=== PATIENT | female | born 1990 | race Caucasian/White ===

== ENCOUNTER 2017-02-20 19:17 | Emergency (ER) | payer OTHER ==
[~2017-02-20] VITALS: Ht 167.6 cm; Wt 90.7 kg
[~2017-02-20 19:17] MED LIST: BACT800T OR; BCP PO; CIPRO PO; IBUP800T OR; PAIN325T OR; TYLENOL #3 OR
[2017-02-20 21:01] LABS: BASO % 0.3 % (0.0-1.0); EOS # 0.2 K/mm3 (0.0-0.50); EOS % 1.9 % (0.0-3.0); LARGE UNSTAINED CELL # 0.1 K/mm3 (0.0-0.4); LARGE UNSTAINED CELL % 1.8 % (0.0-4.0); LYMPH % 36.4 % (24.0-44.0); MEAN CORPUSCULAR HEMOGLOBIN 30.8 pg (27.0-33.0); MEAN CORPUSCULAR HGB CONC 35.8 g/dl (32.0-36.5); MEAN CORPUSCULAR VOLUME 86.2 fl (80.0-96.0); MONO # 0.5 K/mm3 (0.0-0.8); MONO % 6.3 % (0.0-5.0); NEUTROPHILS # 4.2 K/mm3 (1.8-7.7); NEUTROPHILS % 53.4 % (36.0-66.0); PLATELET COUNT, AUTOMATED 345 k/mm3 (150-450); RED CELL DISTRIBUTION WIDTH 12.8 % (11.5-14.5); WHITE BLOOD COUNT 7.9 K/mm3 (4.0-10.0)
[2017-02-20 21:42] VITALS: BP 145/85
[2017-02-20] MEDS ORDERED: NAPR500T PO (21:45)
--- NOTE | 2017-02-20 22:00 | REPUSA ---
Clinical history: Pain. Findings: Real-time transabdominal and transvaginal ultrasound images of the pelvis were obtained. A retroverted uterus is noted, measuring 7.4 x 4.1 x 5.1 cm. The uterus demonstrates normal echotexture and echogenicity. The endometrial s7.4 x 4.1 x 5.110 mm and is within normal limits. The right ovary measures 3.6 x 2.3 x 2.5 cm. The left ovary measures 3.0 x 1.5 x 2.3 cm. No adnexal masses are see n. Color Doppler flow is seen within both ovaries. There is no evidence of free fluid. The urinary bl adder measures 3.1 x 3.0 x 5.4 cm and is unremarkable. Impression: Unremarkable ultrasound examination of the pelvis.
== END 2017-02-20 21:50 | disposition home or self-care (01) ==
LOC: M ED 20:53
DX: R10.2 Pelvic and perineal pain (principal); E66.9 Obesity, unspecified; Z32.02 Encounter for pregnancy test, result negative

== ENCOUNTER 2017-07-03 15:05 | Emergency (ER) | payer OTHER ==
[~2017-07-03] VITALS: Ht 167.6 cm; Wt 91.8 kg
[~2017-07-03 15:05] MED LIST changes: +NAPR500T PO
[2017-07-03 15:09] VITALS: BP 148/94
[2017-07-03] MEDS ORDERED: TYLE325T5 PO (15:13)
[2017-07-03] MEDS ORDERED: BENZ200C53 PO (15:32)
[2017-07-03] MEDS ORDERED: FLON1SPR (15:32)
[2017-07-03] MEDS ORDERED: AUGM875T28 PO (15:32)
== END 2017-07-03 15:43 | disposition home or self-care (01) ==
LOC: M ED 15:05
DX: J01.90 Acute sinusitis, unspecified (principal); R05 Cough; H65.92 Unspecified nonsuppurative otitis media, left ear

== ENCOUNTER 2018-04-18 09:44 | Emergency (ER) | payer OTHER ==
[2018-04-18 10:34] LABS: BASO % 0.5 % (0.0-1.0); EOS # 0.1 10^3/uL (0.0-0.50); EOS % 1.3 % (0.0-3.0); HEMATOCRIT 41.9 % (36.0-47.0); HEMOGLOBIN 14.9 g/dl (12.0-15.5); IMMATURE GRANULOCYTE % 0.3 % (0-3.0); LYMPH # 2.6 10^3/uL (1.5-6.5); LYMPH % 41.8 % (24.0-44.0); MEAN CORPUSCULAR HEMOGLOBIN 30.8 pg (27.0-33.0); MEAN CORPUSCULAR HGB CONC 35.6 g/dl (32.0-36.5); MEAN CORPUSCULAR VOLUME 86.6 fl (80.0-96.0); MONO # 0.5 10^3/uL (0.0-0.8); MONO % 8.6 % (0.0-5.0); NEUTROPHILS # 2.9 10^3/uL (1.8-7.7); NEUTROPHILS % 47.5 % (36.0-66.0); PLATELET COUNT, AUTOMATED 328 10^3/uL (150-450); RED BLOOD COUNT 4.84 10^6/uL (4.00-5.40); WHITE BLOOD COUNT 6.1 10^3/uL (4.0-10.0)
[2018-04-18 10:51] LABS: D-DIMER QUANT < 270.0 ng/ml (<500)
[2018-04-18 11:03] LABS: ANION GAP 9 MEQ/L (8-16); BLOOD UREA NITROGEN 7 MG/DL (7-18); CALCIUM LEVEL 9.2 MG/DL (8.5-10.1); CARBON DIOXIDE LEVEL 29 MEQ/L (21-32); CHLORIDE LEVEL 104 MEQ/L (98-107); CREATININE FOR GFR 0.65 MG/DL (0.55-1.30); GLOMERULAR FILTRATION RATE > 60.0 (>60); GLUCOSE, FASTING 106 MG/DL (70-100); SODIUM LEVEL 142 MEQ/L (136-145)
== END 2018-04-18 11:19 | disposition home or self-care (01) ==
LOC: M ED 09:44
DX: J06.9 Acute upper respiratory infection, unspecified (principal); Z87.440 Personal history of urinary (tract) infections; Z79.899 Other long term (current) drug therapy
CPT/HCPCS: 71046

== ENCOUNTER → 2018-07-04 | Outpatient (CLI) | payer OTHER ==
[2018-07-04 15:38] LABS: FREE T4 1.01 NG/DL (0.76-1.46); PROLACTIN 9.4 NG/ML
[2018-07-07 01:40] LABS: TESTOSTERONE FREE (DIRECT) 1.1 pg/mL (0.0-4.2)
== END ==
LOC: M LAB 14:33
DX: N92.6 Irregular menstruation, unspecified (principal); N97.9 Female infertility, unspecified
CPT/HCPCS: 84146

== ENCOUNTER 2018-12-21 10:07 | Emergency (ER) | payer OTHER ==
[~2018-12-21] VITALS: Ht 167.6 cm; Wt 86.4 kg
[~2018-12-21 10:07] MED LIST changes: +ALEV220C2 PO; +AUGM875T28 PO; +BENZ200C70 PO; +FLON1SPR; +GUAI100L6 PO; +NAPR-837 PO; -NAPR500T PO; +PSEU30TA21 PO; +TYLE-45 PO; +TYLE325T5 PO; +ZITHTAB PO
[2018-12-21] MEDS ORDERED: CIPR500T39 (10:13)
[2018-12-21 11:08] LABS: INFLUENZA A AMPLIFICATION NEGATIVE (NEGATIVE); INFLUENZA B AMPLIFICATION NEGATIVE (NEGATIVE)
[2018-12-21 11:39] LABS: MONO SCRN NEGATIVE (NEGATIVE)
[2018-12-21] MEDS ORDERED: MAGICMW SSP (12:00)
[2018-12-21 12:05] VITALS: BP 118/78
--- NOTE | 2018-12-21 14:15 | ECGEPIP ---
Stationary ECG Study [facility] - ED Test Date: 2018-12-21 Pat Name: KELSEY HAM Department: Room: - Gender: F [employer]otype: CT : 1990 Requested By: DAISY Ivy PA-C Order Number: [id number] Reading MD: Janet Redmond Measurements Intervals [place] Rate: 109 P: 3 AK: 138 QRS: 24 QRSD: 87 T: 28 QT: 334 QTc: 450 Interpretive Statements SINUS TACHYCARDIA NONSPECIFIC T-WAVE ABNORMALITY ABNORMAL RHYTHM ECG NO PRIOR FOR COMPARISON Electronically Signed On 12-21-2018 14:14:52 EDT by Janet Redmond
== END 2018-12-21 12:21 | disposition home or self-care (01) ==
LOC: M ED 10:07
DX: J02.9 Acute pharyngitis, unspecified (principal); R00.0 Tachycardia, unspecified; R94.31 Abnormal electrocardiogram [ECG] [EKG]; Z86.69 Personal history of other diseases of the nervous system and sense organs; Z79.2 Long term (current) use of antibiotics

== ENCOUNTER 2019-03-18 10:52 | Emergency (ER) | payer BC, MEDICAID, OTHER ==
[~2019-03-18] VITALS: Ht 167.6 cm; Wt 82.4 kg
[2019-03-18 10:52] VITALS: BP 127/86
[~2019-03-18 10:52] MED LIST changes: +CIPR500T39; +MAGICMW SSP
[2019-03-18] MEDS ORDERED: ADACEL/BOOSTRIX VACCINE (DIPHTH/PERTUSS/ACELL/TETANUS)0.5ML SYR (90715) IM ONE (11:30)
[2019-03-18] MEDS ORDERED: DERMABOND TOPICAL SKIN ADHESIVE TOP ONE (11:45)
== END 2019-03-18 11:50 | disposition home or self-care (01) ==
LOC: M ED 10:52
DX: S61.012A Laceration without foreign body of left thumb without damage to nail, initial encounter (principal); W25.XXXA Contact with sharp glass, initial encounter; Y92.89 Other specified places as the place of occurrence of the external cause

== ENCOUNTER 2019-05-17 13:27 | Emergency (ER) | payer OTHER ==
[~2019-05-17] VITALS: Ht 167.6 cm; Wt 72.7 kg
[2019-05-17 13:28] VITALS: BP_DIAS 33
[2019-05-17 15:27] VITALS: BP_SYST 140
== END 2019-05-17 15:28 | disposition home or self-care (01) ==
LOC: M ED 13:27
DX: J06.9 Acute upper respiratory infection, unspecified (principal); I10 Essential (primary) hypertension

== ENCOUNTER → 2019-10-10 | Outpatient (CLI) | payer MEDICAID ==
[2019-10-10 16:41] LABS: HEMATOCRIT 38.1 % (36.0-47.0); HEMOGLOBIN 13.2 g/dl (12.0-15.5); MEAN CORPUSCULAR HEMOGLOBIN 30.5 pg (27.0-33.0); MEAN CORPUSCULAR HGB CONC 34.6 g/dl (32.0-36.5); PLATELET COUNT, AUTOMATED 301 10^3/uL (150-450); RED BLOOD COUNT 4.33 10^6/uL (4.00-5.40); WHITE BLOOD COUNT 9.3 10^3/uL (4.0-10.0)
[2019-10-10 19:05] LABS: CHLAMYDIA DNA AMPLIFICATION NEGATIVE (NEGATIVE); GC DNA AMPLIFICATION NEGATIVE (NEGATIVE)
[2019-10-13 10:36] LABS: HIV 1&2 SCREEN CENTAUR NEGATIVE (NEGATIVE)
[2019-10-13 14:17] LABS: HEPATITIS B SURFACE ANTIGEN NEGATIVE (NEGATIVE); HEPATITIS C VIRUS ABY INDEX < 0.0 INDEX (<0.8)
== END ==
LOC: M LAB 14:47
PROVIDERS: ATTEND Advanced Practice Midwife
DX: Z33.1 Pregnant state, incidental (principal)

== ENCOUNTER → 2019-11-10 | Outpatient (CLI) | payer OTHER, MEDICAID | LOC: M LAB 15:18 | PROVIDERS: ATTEND Obstetrics & Gynecology | DX: Z34.81 Encounter for supervision of other normal pregnancy, first trimester (principal) ==

== ENCOUNTER → 2020-01-14 | Outpatient (CLI) | payer MEDICAID ==
--- NOTE | 2020-01-14 16:45 | REP ---
OBSTETRIC SONOGRAPHY: HISTORY: Supervision of , second trimester study. FINDINGS: Scanning through the gravid uterus demonstrates a single living intrauterine gestation in a breech lie. motion is observed, and heart rate is recorded at 161 beats per minute. A posterior grade 0 placenta is seen without evidence of previa. Amniotic fluid is subjectively normal. Closed cervical length is 3.7 cm, viewed transabdominally. No extrauterine abnormalities observed. No anomaly is seen. The following anatomic structures are less than optimally seen due to position: Facial profile, four-chamber heart with left and right ventricular outflow tract views. The following anatomic structures are identified and felt to be unremarkable: cranium, choroid plexus, cavum, cerebellum and posterior fossa, diaphragm, left-sided stomach, abdominal wall cord insertion, three-vessel cord, kidneys and bladder, spine, upper and lower extremities. BIOMETRY CHART: BPD 4.9 cm = 20 weeks 6 days Head circumference 18.7 cm = 21 weeks 0 days Abdominal circumference 15.8 cm = 20 weeks 6 days Femur length 3.5 cm = 20 weeks 6 days Humeral length 3.3 cm = 21 weeks 0 days Cerebellar diameter 2.1 cm = 20 weeks 0 days HC/AC ratio normal 1.18 Cephalic index normal 0.72 Estimated weight 386 grams, 0 pounds 13 ounces, 55th percentile for 20 weeks 5 days. IMPRESSION: Viable single intrauterine gestation at 20 weeks 5 days by today's composite sonographic criteria. MARAL by today's sonography, May 28, 2020. anatomic survey is less than complete regarding facial profile and cardiac anatomy.
== END ==
LOC: M WHC 14:53
PROVIDERS: ATTEND Obstetrics & Gynecology
DX: O32.1XX0 Maternal care for breech presentation, not applicable or unspecified (principal); Z36.89 Encounter for other specified antenatal screening; Z3A.20 20 weeks gestation of pregnancy

== ENCOUNTER 2020-02-01 01:10 | Emergency (ER) | payer MEDICAID, OTHER ==
[~2020-02-01] VITALS: Ht 167.6 cm; Wt 83.4 kg
[2020-02-01] MEDS ORDERED: DERMABOND TOPICAL SKIN ADHESIVE TOP ONE (03:15)
[2020-02-01 03:32] VITALS: BP 129/60
== END 2020-02-01 03:33 | disposition home or self-care (01) ==
LOC: M ED 01:10
DX: S61.411A Laceration without foreign body of right hand, initial encounter (principal); W26.8XXA Contact with other sharp object(s), not elsewhere classified, initial encounter; Y92.018 Other place in single-family (private) house as the place of occurrence of the external cause

== ENCOUNTER → 2020-02-20 | Outpatient (CLI) | payer MEDICAID ==
--- NOTE | 2020-02-21 07:56 | REP ---
REASON FOR EXAM: Followup anatomy. Multiple ultrasonographic images of the gravid uterus show a single living intrauterine gestation in variable position. Doppler interrogation of the heart shows the heart rate of 135 beats per minute. The placenta is posterior and not low lying. The subjective amniotic fluid volume is within normal limits. The cervix measures 3.4 cm in length and is closed. Evaluation of the maternal adnexal spaces showed no abnormalities. BPD 6.5 cm = 26 weeks 1 day HC 24.3 cm = 26 weeks 2 days AC 21.7 cm = 26 weeks 1 day FL 4.9 cm = 26 weeks 4 days The estimated weight is 921 grams which is at the 36th percentile for [id number]-[id number]-day gestational age. Today's anatomy screen was obtained to followup upper lip, four-chamber heart, and ventricular outflow tracts, all of which were well seen today and appear within normal limits. IMPRESSION: Single living intrauterine gestation as described above with an estimated gestational age of 26 weeks 0 days by composite criteria. The MARAL given on the worksheet is 05/24/2020, however, it does not indicate whether or not that MARAL is based on today's composite criteria or the patient's prior ultrasound exam. No anomalies were detected.
== END ==
LOC: M WHC 09:54
PROVIDERS: ATTEND Obstetrics & Gynecology
DX: Z36.2 Encounter for other antenatal screening follow-up (principal); Z3A.25 25 weeks gestation of pregnancy

== ENCOUNTER → 2020-03-12 | Outpatient (REF) | payer MEDICAID ==
[2020-03-12 14:57] LABS: HEMATOCRIT 33.9 % (36.0-47.0); HEMOGLOBIN 11.4 g/dl (12.0-15.5); MEAN CORPUSCULAR HEMOGLOBIN 30.3 pg (27.0-33.0); MEAN CORPUSCULAR HGB CONC 33.6 g/dl (32.0-36.5); MEAN CORPUSCULAR VOLUME 90.2 fl (80.0-96.0); PLATELET COUNT, AUTOMATED 290 10^3/uL (150-450); RED BLOOD COUNT 3.76 10^6/uL (4.00-5.40); WHITE BLOOD COUNT 6.6 10^3/uL (4.0-10.0)
== END ==
LOC: M PLALAB 10:27
PROVIDERS: ATTEND Obstetrics & Gynecology
DX: Z3A.25 25 weeks gestation of pregnancy (principal)

== ENCOUNTER 2020-03-24 16:58 | Outpatient (CLI) | payer MEDICAID ==
[~2020-03-24] VITALS: Ht 167.6 cm; Wt 80.8 kg
[2020-03-24 17:13] VITALS: BP 136/89
[2020-03-24 17:40] VITALS: BP 113/74
--- NOTE | 2020-03-24 18:39 | IPN ---
DATE: 03/24/2020 Eileen is a 29-year-old 2, para 1-0-0-1 at 31-2/7 weeks days gestation with estimated date of confinement (EDC) of 05/24/2020 based on first trimester ultrasound presents to labor and delivery today with report of decreased movement. She reports that she has eaten a salad for lunch and has drank soda. She does report since having the electronic monitoring applied the fetus has been active. She does report a scant pink wipe when she used bathroom here. She denies any earlier bleeding. She denies regular contractions and leakage of fluid. Her care was initiated at [facility] in the first trimester. course has been essentially uncomplicated. OBSTETRICAL HISTORY: On 04/19/2007, 40 weeks gestation, 6-pound 10-ounce female, vaginal delivery. MEDICAL HISTORY 1. Kidney stones. 2. Urinary tract infections. 3. Degenerative disc disease. 4. History of left kidney stones with pyelonephritis. SURGERIES: None. FAMILY HISTORY: Kidney cancer, kidney disease, heart disease, ovarian cancer, colon cancer. SOCIAL HISTORY: The patient is single. She is a nonsmoker. Denies any alcohol or drug use. Denies any history of sexually transmitted infections. Denies history of abuse, physical, sexual, and emotional allergies. ALLERGIES: PERTUSSIS VACCINE. CURRENT MEDICATIONS: vitamin OBJECTIVE: Blood pressure (BP) is 113/74. heart rate is 125, moderate variability, positive accelerations, negative decelerations. There is no pattern of regular contractions. Sterile speculum exam. No bleeding. Cervix is visually long, thick, and closed. ASSESSMENT: Intrauterine at 31 weeks and 2 days. heart rate category 1. PLAN: Discharge the patient home. She is to keep her next appointment, which is scheduled on March 31 next week. I did review signs symptoms of labor, kick counts, and access to care. The patient has had all of her questions answered and desires to be discharged home.
== END 2020-03-24 18:15 | disposition home or self-care (01) ==
LOC: M LDO 16:58
PROVIDERS: ATTEND Advanced Practice Midwife
DX: O36.8130 Decreased fetal movements, third trimester, not applicable or unspecified (principal); Z3A.31 31 weeks gestation of pregnancy; Z87.440 Personal history of urinary (tract) infections; Z87.442 Personal history of urinary calculi; Z80.0 Family history of malignant neoplasm of digestive organs; Z80.41 Family history of malignant neoplasm of ovary; Z80.51 Family history of malignant neoplasm of kidney; Z82.49 Family history of ischemic heart disease and other diseases of the circulatory system; Z84.1 Family history of disorders of kidney and ureter; Z88.7 Allergy status to serum and vaccine

== ENCOUNTER → 2020-04-27 | Outpatient (REF) | payer MEDICAID ==
[~2020-04-27] MED LIST changes: +MULTTAB20 PO
== END ==
LOC: M SFHCWAGY 15:49
PROVIDERS: ATTEND Advanced Practice Midwife
DX: Z36.85 Encounter for antenatal screening for Streptococcus B (principal)

== ENCOUNTER 2020-05-22 12:57 | Inpatient (IN) | payer MEDICAID ==
[~2020-05-22] VITALS: Ht 167.6 cm; Wt 83.6 kg
[~2020-05-22 12:57] MED LIST changes: -MULTTAB20 PO
[2020-05-22] MEDS ORDERED: MULTTAB20 PO (13:23)
[2020-05-22 14:07] VITALS: BP 124/83
[2020-05-22 14:21] LABS: HEMATOCRIT 34.7 % (36.0-47.0); MEAN CORPUSCULAR HEMOGLOBIN 30.4 pg (27.0-33.0); MEAN CORPUSCULAR HGB CONC 34.6 g/dl (32.0-36.5); MEAN CORPUSCULAR VOLUME 87.8 fl (80.0-96.0); PLATELET COUNT, AUTOMATED 351 10^3/uL (150-450); RED BLOOD COUNT 3.95 10^6/uL (4.00-5.40); WHITE BLOOD COUNT 10.7 10^3/uL (4.0-10.0)
[2020-05-22] MEDS ORDERED: LACTATED RINGER'S 1000 ML IV STA (15:24)
[2020-05-22] MEDS ORDERED: PENICILLIN G POTASSIUM IV 5 MU in D5W MINI-BAG PLUS 100 ML IV STA (15:24)
[2020-05-22] MEDS: miSOPROStol 50 MCG 1/2 TAB (S0191) SL SCH ×2 (15:48→23:12)
[2020-05-22 16:12] VITALS: BP 121/73
[2020-05-22 17:53] VITALS: BP 129/78
[2020-05-22 18:53] VITALS: BP 130/86
[2020-05-22] MEDS ORDERED: CALCIUM CARBONATE 500 MG CHEW U/D PO PRN (19:00)
[2020-05-22] MEDS ORDERED: PENICILLIN G POTASSIUM IV 2.5 MU in IV 1 EA IV SCH (19:30)
[2020-05-23] VITALS (30 sets, daily range): BP systolic 92–136; BP diastolic 50–76
[2020-05-23] MEDS: miSOPROStol 50 MCG 1/2 TAB (S0191) SL SCH (04:20)
[2020-05-23] MEDS ORDERED: PENICILLIN G POTASSIUM 5 MU VIAL As Ordered ONE (05:04)
[2020-05-23] MEDS ORDERED: PENICILLIN G POTASSIUM IV 5 MU in D5W MINI-BAG PLUS 100 ML IV STA (05:05)
[2020-05-23] MEDS ORDERED: FENTANYL 2MCG/ML ROPIVACAINE 0.2% IN 0.9% NACL 100ML IVBAG As Ordered ONE (05:28)
[2020-05-23] MEDS: LR 1,000 ML IV SCH ×3 (06:08→09:55)
[2020-05-23] MEDS ORDERED: ONDANSETRON 4MG/2ML VIAL As Ordered ONE (06:09)
[2020-05-23] MEDS ORDERED: NALOXONE INJ 0.4MG/1ML VIAL (J2310 PER 1MG) IV PRN (08:45)
[2020-05-23] MEDS ORDERED: ePHEDrine SULFATE 25 MG/5 ML(5MG/ML) SYRINGE IV PRN (08:45)
[2020-05-23] MEDS ORDERED: REFRIGERATOR IV KEYS XX PRN (08:45)
[2020-05-23] MEDS ORDERED: ONDANSETRON 4MG/2ML VIAL IV PRN ×2 (08:45→13:30)
[2020-05-23] MEDS ORDERED: diphenhydrAMINE 50MG/ML VIAL (J1200) IV PRN (08:45)
[2020-05-23] MEDS ORDERED: LACTATED RINGER'S 1000 ML IV PRN (08:45)
[2020-05-23] MEDS ORDERED: EPIDURAL/PCA KEYS XX PRN (08:45)
[2020-05-23] MEDS ORDERED: FENTANYL/ROPIVACAINE/NACL BAG 100 ML EPIDURAL SCH (08:45)
[2020-05-23] MEDS ORDERED: EPIDURAL COMMENT XX SCH (08:45)
[2020-05-23] MEDS ORDERED: **PENDING PCN ENTRY XX SCH (09:00)
[2020-05-23] MEDS ORDERED: PENICILLIN G POTASSIUM IV 2.5 MU in IV 1 EA IV SCH (09:15)
[2020-05-23] MEDS ORDERED: OXYTOCIN DRIP 30 UNITS in IV 1 EA IV SCH ×2 (10:00→13:45)
[2020-05-23] MEDS ORDERED: MEASLES,MUMPS,RUBELLA VACCINE INJ (MMR-II) (90707) SC SCH (13:30)
[2020-05-23] MEDS ORDERED: ACETAMINOPHEN 500 MG TAB PO PRN (13:30)
[2020-05-23] MEDS ORDERED: ACETAMINOPHEN TAB 650MG DOSE (2X325MG) PO PRN (13:30)
[2020-05-23] MEDS ORDERED: METHYLERGONOVINE MALEATE 0.2 MG TAB PO PRN (13:30)
[2020-05-23] MEDS ORDERED: DOCUSATE SODIUM 100 MG CAP PO PRN (13:30)
[2020-05-23] MEDS ORDERED: DIBUCAINE 1% OINTMENT 30GM TOP PRN (13:30)
[2020-05-23] MEDS ORDERED: IBUPROFEN 600MG TAB PO PRN (13:30)
[2020-05-23] MEDS ORDERED: RHOGAM 300 MCG (1500 IU) INJ (J2790) IM SCH (13:30)
[2020-05-23] MEDS ORDERED: PROMETHAZINE 25 MG TAB PO PRN (13:30)
[2020-05-23] MEDS ORDERED: LR 1,000 ML IV SCH (14:00)
[2020-05-23] MEDS: IBUPROFEN 800 MG TAB PO PRN (15:06)
[2020-05-24 06:00] VITALS: BP 123/70
[2020-05-24 08:10] VITALS: BP 123/70
[2020-05-24] MEDS ORDERED: PRENATAL VITAMINS CHEWABLE TABLET PO SCH (09:00)
[2020-05-24] MEDS: IBUPROFEN 800 MG TAB PO PRN (15:34)
== END 2020-05-24 15:40 | disposition home or self-care (01) | DRG 560 ==
LOC: M LDI 12:57 → M OBS 05-23 15:54
PROVIDERS: ADMIT Obstetrics & Gynecology; ATTEND Obstetrics & Gynecology
PROC: 3E0P7GC Introduction of Other Therapeutic Substance into Female Reproductive, Via Natural or Artificial Opening (ICD-10-PCS; 2020-05-22)
PROC: 10E0XZZ Delivery of Products of Conception, External Approach (ICD-10-PCS; principal; 2020-05-23)
DX: O99.824 Streptococcus B carrier state complicating childbirth (principal); Z3A.39 39 weeks gestation of pregnancy; O69.81X0 Labor and delivery complicated by cord around neck, without compression, not applicable or unspecified; Z37.0 Single live birth

== ENCOUNTER 2020-09-04 06:49 | Emergency (ER) | payer MEDICAID, OTHER ==
[~2020-09-04] VITALS: Ht 167.6 cm; Wt 79.7 kg
[2020-09-04 06:49] VITALS: BP 128/81
[~2020-09-04 06:49] MED LIST changes: +MULTTAB20 PO
== END 2020-09-04 08:23 | disposition home or self-care (01) ==
LOC: M ED 06:49
DX: Z20.828 Contact with and (suspected) exposure to other viral communicable diseases (principal); J06.9 Acute upper respiratory infection, unspecified; B34.9 Viral infection, unspecified
CPT/HCPCS: 99283; U0003

== ENCOUNTER → 2020-09-07 | Outpatient (CLI) | payer SELFPAY | LOC: M LABSMTC 14:12 | PROVIDERS: ATTEND Pediatrics | DX: Z20.828 Contact with and (suspected) exposure to other viral communicable diseases (principal) ==

== ENCOUNTER 2021-02-27 08:54 | Emergency (ER) | payer OTHER ==
[~2021-02-27] VITALS: Ht 167.6 cm; Wt 83.1 kg
--- NOTE | 2021-02-27 09:36 | REP ---
INDICATION: trauma. COMPARISON: None. TECHNIQUE: Four views of the left wrist are provided. FINDINGS: Overall mineralization pattern is normal. Joint spaces are preserved. Alignment is normal. No fracture or subluxation is seen. IMPRESSION: Unremarkable radiographs of the left wrist. No fracture seen. <Electronically signed by Juan M Soto > 02/27/21 [id number]
--- NOTE | 2021-02-27 09:37 | REP ---
INDICATION: trauma. COMPARISON: None. TECHNIQUE: Four views of the left elbow are provided. FINDINGS: Four views of the left elbow demonstrate positive fat pad sign indicating hemarthrosis.. There is a nondisplaced slightly impacted fracture of the proximal radial head. No proximal ulnar or distal humeral fracture is seen.. No opaque foreign body noted. IMPRESSION: Slightly impacted nondisplaced fracture of the proximal radial head with hemarthrosis.. <Electronically signed by Juan M Soto > 02/27/21 0943
--- NOTE | 2021-02-27 09:39 | REP ---
INDICATION: fall/deformity. COMPARISON: None. TECHNIQUE: AP and lateral views of the left forearm are provided. FINDINGS: AP and lateral views of the left forearm demonstrate subtle radiolucency in the proximal radial neck better seen on elbow radiographs. No other forearm fracture is seen.. . No opaque foreign body noted. IMPRESSION: Proximal radial fracture better seen on elbow radiographs. No additional fracture seen.. <Electronically signed by Juan M Soto > 02/27/21 0915
[2021-02-27 11:25] VITALS: BP 123/82
== END 2021-02-27 11:27 | disposition home or self-care (01) ==
LOC: M ED 08:54
DX: S52.121A Displaced fracture of head of right radius, initial encounter for closed fracture (principal); W19.XXXA Unspecified fall, initial encounter; Y92.89 Other specified places as the place of occurrence of the external cause; Y93.9 Activity, unspecified; Y99.9 Unspecified external cause status

== ENCOUNTER → 2021-03-18 | Outpatient (CLI) | payer OTHER ==
--- NOTE | 2021-03-18 11:54 | REP ---
INDICATION: NONDISP FX OF NECK OF 1 RAD, SUBS FOR CLOS FX W/ ROUTN HEAL. COMPARISON: 02/27/2021 TECHNIQUE: AP, lateral, bilateral oblique views of the left elbow FINDINGS: Nondisplaced transverse fracture along the proximal neck of the radius. Small amount of adjacent callus formation suggests early healing process. The joint spaces appear intact and relatively normal. There is decreased elevation to the anterior fat pad suggesting decreasing hemarthrosis. IMPRESSION: Known nondisplaced fracture through the proximal radial metaphysis with suggestions for early healing. <Electronically signed by Bao Mendoza > 03/18/21 [id number]
== END ==
LOC: M SOG 11:33
PROVIDERS: ATTEND Orthopaedic Surgery Sports Medicine
DX: S52.135D Nondisplaced fracture of neck of left radius, subsequent encounter for closed fracture with routine healing (principal); W18.30XD Fall on same level, unspecified, subsequent encounter; Y92.009 Unspecified place in unspecified non-institutional (private) residence as the place of occurrence of the external cause

== ENCOUNTER → 2021-08-01 | Outpatient (CLI) | payer OTHER | LOC: M LABSMTC 09:43 | PROVIDERS: ATTEND Pediatrics | DX: Z20.822 Contact with and (suspected) exposure to COVID-19 (principal) ==

== ENCOUNTER 2022-05-26 17:09 | Emergency (ER) | payer OTHER ==
[~2022-05-26] VITALS: Ht 167.6 cm; Wt 83.4 kg
[2022-05-26 17:10] VITALS: BP 135/94
[2022-05-26] MEDS ORDERED: KETOROLAC 30 MG/ML 1ML VIAL IM ONE (20:30)
[2022-05-26] MEDS ORDERED: diazePAM 5MG TABLET PO ONE (20:30)
[2022-05-26] MEDS ORDERED: LIDOCAINE 5% (LIDODERM) PATCH TD ONE (20:30)
[2022-05-26] MEDS ORDERED: CYCL5TAB PO (21:10)
[2022-05-26] MEDS ORDERED: methylPREDNISolone 125MG 2ML VIAL IV ONE (21:10)
[2022-05-26] MEDS ORDERED: MEDR4PAK PO (21:10)
[2022-05-26] MEDS ORDERED: methylPREDNISolone 125MG 2ML VIAL IM ONE (21:20)
[2022-05-27] MEDS ORDERED: **NOTE PATIENT COMMENT** MISC XX ONE (09:00)
== END 2022-05-26 21:50 | disposition home or self-care (01) ==
LOC: M ED 17:09
DX: M51.36 Other intervertebral disc degeneration, lumbar region (principal)
CPT/HCPCS: 72131; 96372; 99283; J1885; J2930

== ENCOUNTER 2022-08-10 08:11 | Emergency (ER) | payer MEDICAID, OTHER ==
[~2022-08-10] VITALS: Ht 167.6 cm; Wt 86.0 kg
[~2022-08-10 08:11] MED LIST changes: +CYCL5TAB PO; +MEDR4PAK PO
[2022-08-10 09:07] LABS: HEMATOCRIT 39.8 % (36.0-47.0); HEMOGLOBIN 13.7 g/dl (12.0-15.5); MEAN CORPUSCULAR HGB CONC 34.4 g/dl (32.0-36.5); MEAN CORPUSCULAR VOLUME 87.3 fl (80.0-96.0); PLATELET COUNT, AUTOMATED 313 10^3/uL (150-450); RED BLOOD COUNT 4.56 10^6/uL (4.00-5.40); WHITE BLOOD COUNT 7.2 10^3/uL (4.0-10.0)
[2022-08-10 11:06] VITALS: BP 128/76
== END 2022-08-10 11:07 | disposition home or self-care (01) ==
LOC: M ED 08:11
DX: O46.91 Antepartum hemorrhage, unspecified, first trimester (principal); Z3A.00 Weeks of gestation of pregnancy not specified; Z79.899 Other long term (current) drug therapy

== ENCOUNTER → 2022-08-12 | Outpatient (CLI) | payer OTHER | LOC: M LAB 09:06 | PROVIDERS: ATTEND Obstetrics & Gynecology | DX: O20.9 Hemorrhage in early pregnancy, unspecified (principal); Z3A.00 Weeks of gestation of pregnancy not specified ==

== ENCOUNTER → 2022-08-24 | Outpatient (CLI) | payer OTHER | LOC: M LAB 10:47 | PROVIDERS: ATTEND Advanced Practice Midwife | DX: O03.9 Complete or unspecified spontaneous abortion without complication (principal) ==

== ENCOUNTER 2022-10-25 11:19 | Emergency (ER) | payer MEDICAID, OTHER ==
[~2022-10-25] VITALS: Ht 167.6 cm; Wt 81.8 kg
[2022-10-25] MEDS ORDERED: LETR2.5T2 (11:28)
[2022-10-25 12:22] LABS: BASO % 0.3 % (0.0-1.0); EOS # 0.1 10^3/uL (0.0-0.5); HEMATOCRIT 40.3 % (36.0-47.0); HEMOGLOBIN 13.9 g/dl (12.0-15.5); LYMPH # 2.1 10^3/uL (1.5-5.0); LYMPH % 33.9 % (24.0-44.0); MEAN CORPUSCULAR HEMOGLOBIN 29.8 pg (27.0-33.0); MEAN CORPUSCULAR HGB CONC 34.5 g/dl (32.0-36.5); MEAN CORPUSCULAR VOLUME 86.5 fl (80.0-96.0); MONO # 0.5 10^3/uL (0.0-0.8); MONO % 7.7 % (2.0-8.0); NEUTROPHILS # 3.5 10^3/uL (1.5-8.5); NEUTROPHILS % 56.8 % (36.0-66.0); PLATELET COUNT, AUTOMATED 355 10^3/uL (150-450); RED BLOOD COUNT 4.66 10^6/uL (4.00-5.40); WHITE BLOOD COUNT 6.2 10^3/uL (4.0-10.0)
[2022-10-25 12:57] LABS: BLOOD UREA NITROGEN 10 MG/DL (9-23); CALCIUM LEVEL 9.2 MG/DL (8.5-10.1); CARBON DIOXIDE LEVEL 24 MMOL/L (20-31); CHLORIDE LEVEL 104 MMOL/L (98-107); CREATININE FOR GFR 0.62 MG/DL (0.55-1.30); GLOMERULAR FILTRATION RATE > 60.0 (>60); GLUCOSE, FASTING 97 MG/DL (60-100); SODIUM LEVEL 138 MMOL/L (136-145)
[2022-10-25 13:09] LABS: HCG, SERUM QUALITATIVE NEGATIVE (NEGATIVE)
[2022-10-25 15:33] VITALS: BP 136/95
== END 2022-10-25 15:36 | disposition home or self-care (01) ==
LOC: M ED 11:19
DX: N93.9 Abnormal uterine and vaginal bleeding, unspecified (principal); Z87.59 Personal history of other complications of pregnancy, childbirth and the puerperium

== ENCOUNTER → 2022-11-16 | Outpatient (REF) | payer OTHER, MEDICAID ==
[~2022-11-16] MED LIST changes: +LETR2.5T2
== END ==
LOC: M SFHCLERA 17:35
PROVIDERS: ATTEND Family Medicine
DX: R30.0 Dysuria (principal)

== ENCOUNTER → 2023-03-24 | Outpatient (REF) | payer OTHER, MEDICAID | LOC: M LAB REF 16:54 | PROVIDERS: ATTEND Physician Assistant Medical | DX: B34.9 Viral infection, unspecified (principal) ==

== ENCOUNTER → 2023-05-10 | Outpatient (CLI) | payer OTHER, MEDICAID ==
[2023-05-10 14:08] LABS: BASO % 0.3 % (0.0-1.0); EOS % 0.5 % (0.0-3.0); HEMATOCRIT 41.2 % (36.0-47.0); HEMOGLOBIN 14.1 g/dl (12.0-15.5); LYMPH # 2.5 10^3/uL (1.5-5.0); LYMPH % 41.2 % (24.0-44.0); MEAN CORPUSCULAR HEMOGLOBIN 29.8 pg (27.0-33.0); MEAN CORPUSCULAR HGB CONC 34.2 g/dl (32.0-36.5); MEAN CORPUSCULAR VOLUME 87.1 fl (80.0-96.0); MONO # 0.5 10^3/uL (0.0-0.8); MONO % 8.3 % (2.0-8.0); NEUTROPHILS % 49.5 % (36.0-66.0); PLATELET COUNT, AUTOMATED 331 10^3/uL (150-450); RED BLOOD COUNT 4.73 10^6/uL (4.00-5.40)
[2023-05-10 14:39] LABS: ALBUMIN 4.2 G/DL (3.2-5.2); ALKALINE PHOSPHATASE 46 U/L (46-116); ALT/SGPT 17 U/L (7.0-40); AST/SGOT < 8 U/L (<34); BILIRUBIN,TOTAL 0.6 MG/DL (0.3-1.2); BLOOD UREA NITROGEN 8 MG/DL (9-23); CALCIUM LEVEL 9.8 MG/DL (8.5-10.1); CARBON DIOXIDE LEVEL 26 MMOL/L (20-31); CHLORIDE LEVEL 106 MMOL/L (98-107); CHOLESTEROL LEVEL 187 MG/DL (<200); CHOLESTEROL RISK RATIO 4.27 (<5); CREATININE FOR GFR 0.63 MG/DL (0.55-1.30); FREE T4 1.02 NG/DL (0.89-1.76); GLOMERULAR FILTRATION RATE > 60.0 (>60); GLUCOSE, FASTING 96 MG/DL (60-100); HDL CHOLESTEROL 43.7 MG/DL (>40); LDL CHOLESTEROL 117.7 MG/DL (<100); NON-HDL-C 143.3 MG/DL; POTASSIUM SERUM 4.2 MMOL/L (3.5-5.1); SODIUM LEVEL 140 MMOL/L (136-145); THYROID STIMULATING HORMONE 1.415 uIU/ML (0.55-4.78); TOTAL PROTEIN 7.2 G/DL (5.7-8.2); TRIGLYCERIDES LEVEL 128 MG/DL (<150)
== END ==
LOC: M LAB 13:16
PROVIDERS: ATTEND Family Medicine
DX: Z68.31 Body mass index [BMI] 31.0-31.9, adult (principal); E66.9 Obesity, unspecified

== ENCOUNTER → 2024-02-18 | Outpatient (CLI) | payer OTHER | LOC: M RAD 15:41 | PROVIDERS: ATTEND Family Medicine | DX: M79.89 Other specified soft tissue disorders (principal) ==

== ENCOUNTER → 2024-03-05 | Outpatient (CLI) | payer OTHER | LOC: M LAB 16:22 | PROVIDERS: ATTEND Specialist | DX: Z34.90 Encounter for supervision of normal pregnancy, unspecified, unspecified trimester (principal) ==

== ENCOUNTER → 2024-03-07 | Outpatient (CLI) | payer OTHER | LOC: M LAB 15:43 | PROVIDERS: ATTEND Specialist | DX: Z34.90 Encounter for supervision of normal pregnancy, unspecified, unspecified trimester (principal) ==

== ENCOUNTER → 2024-03-21 | Outpatient (CLI) | payer OTHER | LOC: M SOG 09:27 | PROVIDERS: ATTEND Orthopaedic Surgery | DX: M54.50 Low back pain, unspecified (principal); M53.3 Sacrococcygeal disorders, not elsewhere classified ==

== ENCOUNTER → 2024-05-10 | Outpatient (CLI) | payer OTHER ==
[2024-05-10 10:28] LABS: BASO % 0.4 % (0.0-1.0); EOS # 0.1 10^3/uL (0.0-0.5); EOS % 1.2 % (0.0-3.0); HEMATOCRIT 40.3 % (36.0-47.0); HEMOGLOBIN 13.8 g/dl (12.0-15.5); LYMPH # 2.6 10^3/uL (1.5-5.0); LYMPH % 49.9 % (24.0-44.0); MEAN CORPUSCULAR HEMOGLOBIN 30.3 pg (27.0-33.0); MEAN CORPUSCULAR HGB CONC 34.2 g/dl (32.0-36.5); MEAN CORPUSCULAR VOLUME 88.4 fl (80.0-96.0); MONO # 0.5 10^3/uL (0.0-0.8); MONO % 9.5 % (2.0-8.0); NEUTROPHILS % 38.8 % (36.0-66.0); PLATELET COUNT, AUTOMATED 298 10^3/uL (150-450); RED BLOOD COUNT 4.56 10^6/uL (4.00-5.40); WHITE BLOOD COUNT 5.2 10^3/uL (4.0-10.0)
[2024-05-10 10:59] LABS: CORTISOL AM 6.4 UG/DL (4.3-22.4)
[2024-05-10 11:00] LABS: ALBUMIN 3.8 G/DL (3.2-5.2); ALKALINE PHOSPHATASE 59 U/L (46-116); ALT/SGPT 33 U/L (7.0-40); AST/SGOT 14 U/L (<34); BILIRUBIN,TOTAL 0.5 MG/DL (0.3-1.2); BLOOD UREA NITROGEN 10 MG/DL (9-23); CALCIUM LEVEL 9.2 MG/DL (8.5-10.1); CARBON DIOXIDE LEVEL 26 MMOL/L (20-31); CHLORIDE LEVEL 111 MMOL/L (98-107); CHOLESTEROL LEVEL 175 MG/DL (<200); CHOLESTEROL RISK RATIO 4.78 (<5); CREATININE FOR GFR 0.64 MG/DL (0.55-1.30); GLOMERULAR FILTRATION RATE > 60.0 (>60); GLUCOSE, FASTING 101 MG/DL (60-100); HDL CHOLESTEROL 36.6 MG/DL (>40); LDL CHOLESTEROL 116.4 MG/DL (<100); NON-HDL-C 138.4 MG/DL; POTASSIUM SERUM 4.3 MMOL/L (3.5-5.1); SODIUM LEVEL 140 MMOL/L (136-145); TRIGLYCERIDES LEVEL 110 MG/DL (<150)
[2024-05-10 11:02] LABS: HEMOGLOBIN A1c 4.8 % (4.0-6.0)
[2024-05-10 11:03] LABS: TOTAL 25(OH) VITAMIN D 28.2 NG/ML (20.0-100.0)
== END ==
LOC: M LAB 09:12
PROVIDERS: ATTEND Family Medicine
DX: E66.9 Obesity, unspecified (principal)

== ENCOUNTER 2025-01-04 10:20 | Emergency (ER) | payer OTHER ==
[~2025-01-04] VITALS: Ht 167.6 cm; Wt 95.5 kg
[~2025-01-04 10:20] MED LIST changes: -CYCL5TAB PO; +CYCL5TAB4 PO
[2025-01-04] MEDS ORDERED: INSU100V11 SQ (10:48)
[2025-01-04 11:01] LABS: KETONE, URINE AUTO RFX NEGATIVE (NEGATIVE); LEUKOCYTE ESTERASE UR AUTO RFX NEGATIVE (NEGATIVE); MUCUS, URINE RFX SMALL (NEGATIVE); NITRITE, URINE AUTO RFX NEGATIVE (NEGATIVE); RBC, URINE AUTO RFX 0 /HPF (0-3); SQUAM EPITHELIAL CELL UR AURFX 2 /HPF (0-6); WBC, URINE AUTO RFX 1 /HPF (0-3)
[2025-01-04 11:09] LABS: BASO % 0.6 % (0.0-1.0); EOS # 0.1 10^3/uL (0.0-0.5); EOS % 1.1 % (0.0-3.0); HEMATOCRIT 41.6 % (36.0-47.0); HEMOGLOBIN 14.4 g/dl (12.0-15.5); LYMPH % 46.1 % (24.0-44.0); MEAN CORPUSCULAR HEMOGLOBIN 29.8 pg (27.0-33.0); MEAN CORPUSCULAR HGB CONC 34.6 g/dl (32.0-36.5); MONO # 0.6 10^3/uL (0.0-0.8); MONO % 8.6 % (2.0-8.0); NEUTROPHILS # 2.9 10^3/uL (1.5-8.5); NEUTROPHILS % 43.4 % (36.0-66.0); PLATELET COUNT, AUTOMATED 348 10^3/uL (150-450); RED BLOOD COUNT 4.84 10^6/uL (4.00-5.40); WHITE BLOOD COUNT 6.6 10^3/uL (4.0-10.0)
[2025-01-04 11:38] LABS: LIPASE 41 U/L (12-53)
[2025-01-04 11:39] LABS: HCG, SERUM QUALITATIVE NEGATIVE (NEGATIVE)
[2025-01-04 11:40] LABS: ALKALINE PHOSPHATASE 53 U/L (35-104); ALT/SGPT 18 U/L (7.0-40); AST/SGOT 12 U/L (<34); BILIRUBIN,DIRECT 0.1 MG/DL (<0.4); BILIRUBIN,TOTAL 0.4 MG/DL (0.3-1.2); BLOOD UREA NITROGEN 9 MG/DL (9-23); CALCIUM LEVEL 9.1 MG/DL (8.5-10.1); CARBON DIOXIDE LEVEL 26 MMOL/L (20-31); CHLORIDE LEVEL 108 MMOL/L (98-107); CREATININE FOR GFR 0.58 MG/DL (0.55-1.30); GLOMERULAR FILTRATION RATE > 90.0 (>60); GLUCOSE, FASTING 91 MG/DL (60-100); POTASSIUM SERUM 4.2 MMOL/L (3.5-5.1); SODIUM LEVEL 143 MMOL/L (136-145); TOTAL PROTEIN 7.1 G/DL (5.7-8.2)
[2025-01-04 12:46] VITALS: BP 143/86; TEMP 99.5; O2SAT 99
== END 2025-01-04 12:49 | disposition home or self-care (01) ==
LOC: M ED 10:20
DX: R10.32 Left lower quadrant pain (principal); Z79.4 Long term (current) use of insulin; Z79.899 Other long term (current) drug therapy

== ENCOUNTER → 2025-01-05 | Outpatient (CLI) | payer OTHER ==
[~2025-01-05] MED LIST changes: +INSU100V11 SQ
[2025-01-05 09:36] LABS: HCG, SERUM QUALITATIVE NEGATIVE (NEGATIVE)
== END ==
LOC: M LAB 08:59
PROVIDERS: ATTEND Family Medicine
DX: Z32.01 Encounter for pregnancy test, result positive (principal)

== ENCOUNTER → 2025-01-12 | Outpatient (CLI) | payer OTHER | LOC: M LAB 07:19 | PROVIDERS: ATTEND Family Medicine | DX: N92.6 Irregular menstruation, unspecified (principal) ==

== ENCOUNTER → 2025-01-14 | Outpatient (CLI) | payer OTHER | LOC: M LAB 07:03 | PROVIDERS: ATTEND Family Medicine | DX: N92.6 Irregular menstruation, unspecified (principal) ==

== ENCOUNTER → 2025-01-16 | Outpatient (CLI) | payer OTHER | LOC: M LAB 06:20 | PROVIDERS: ATTEND Family Medicine | DX: Z32.00 Encounter for pregnancy test, result unknown (principal) ==

== ENCOUNTER → 2025-01-19 | Outpatient (CLI) | payer OTHER | LOC: M LAB 09:16 | PROVIDERS: ATTEND Family Medicine | DX: Z32.00 Encounter for pregnancy test, result unknown (principal) ==

== ENCOUNTER → 2025-03-27 | Outpatient (CLI) | payer OTHER ==
[2025-03-27 16:04] LABS: BASO # 0.0 10^3/uL (0.0-0.2); BASO % 0.3 % (0.0-1.0); EOS # 0.0 10^3/uL (0.0-0.5); EOS % 0.6 % (0.0-3.0); LYMPH # 3.0 10^3/uL (1.5-5.0); LYMPH % 46.1 % (24.0-44.0); MONO # 0.6 10^3/uL (0.0-0.8); MONO % 9.2 % (2.0-8.0); NEUTROPHILS # 2.8 10^3/uL (1.5-8.5); NEUTROPHILS % 43.5 % (36.0-66.0); PLATELET COUNT, AUTOMATED 296 10^3/uL (150-450)
[2025-03-27 16:12] LABS: ERYTHROCYTE SEDIMENTATION RATE 8 mm/hr (0-20)
[2025-03-27 16:30] LABS: ALT/SGPT 29 U/L (7.0-40); AST/SGOT 18 U/L (<34); C REACTIVE PROTEIN QUANTITATIV < 0.50 MG/DL (<1.0); CALCIUM LEVEL 9.2 MG/DL (8.5-10.1); CARBON DIOXIDE LEVEL 26 MMOL/L (20-31); CHLORIDE LEVEL 104 MMOL/L (98-107); CREATININE FOR GFR 0.65 MG/DL (0.55-1.30); GLOMERULAR FILTRATION RATE > 90.0 (>60); POTASSIUM SERUM 3.9 MMOL/L (3.5-5.1); RHEUMATOID FACTOR QUANT < 3.5 IU/ML (<14); SODIUM LEVEL 140 MMOL/L (136-145)
== END ==
LOC: M LAB 15:20
PROVIDERS: ATTEND Family Medicine
DX: R76.8 Other specified abnormal immunological findings in serum (principal); M54.41 Lumbago with sciatica, right side

== ENCOUNTER 2025-05-25 16:58 | Emergency (ER) | payer OTHER ==
[~2025-05-25] VITALS: Ht 167.6 cm; Wt 90.0 kg
[2025-05-25] MEDS ORDERED: ACET-683 PO (17:04)
[2025-05-25] MEDS ORDERED: SEMA0.252 SQ (17:04)
[2025-05-25 21:14] LABS: URINE PREG TEST NEGATIVE (NEGATIVE)
[2025-05-25] MEDS ORDERED: METH-1164 PO (21:19)
[2025-05-25] MEDS: KETOROLAC 60 MG/2 ML VIAL IM ONE (21:22)
[2025-05-25 21:29] VITALS: BP 141/90; TEMP 97.8; O2SAT 98
== END 2025-05-25 21:30 | disposition home or self-care (01) ==
LOC: M ED 16:58
DX: M54.41 Lumbago with sciatica, right side (principal); Z79.1 Long term (current) use of non-steroidal anti-inflammatories (NSAID); Z79.4 Long term (current) use of insulin; Z79.899 Other long term (current) drug therapy
CPT/HCPCS: 84703; 96372; 99283; J1100; J1885

== ENCOUNTER → 2025-06-01 | Outpatient (CLI) | payer OTHER ==
[~2025-06-01] MED LIST changes: +ACET-683 PO; +METH-1164 PO; +SEMA0.252 SQ
[2025-06-01 11:10] LABS: CARBON DIOXIDE LEVEL 26 MMOL/L (20-31); CHLORIDE LEVEL 107 MMOL/L (98-107); POTASSIUM SERUM 4.6 MMOL/L (3.5-5.1); SODIUM LEVEL 138 MMOL/L (136-145)
[2025-06-01 11:20] LABS: HCG, SERUM QUALITATIVE NEGATIVE (NEGATIVE)
== END ==
LOC: M PLALAB 09:01
PROVIDERS: ATTEND Orthopaedic Surgery
DX: Z01.812 Encounter for preprocedural laboratory examination (principal); M51.362 Other intervertebral disc degeneration, lumbar region with discogenic back pain and lower extremity pain

== ENCOUNTER → 2025-07-21 | Outpatient (RCR) | LOC: M EMPSSV 07-12 13:15 | PROVIDERS: ATTEND Family Medicine | DX: Z20.828 Contact with and (suspected) exposure to other viral communicable diseases (principal) ==